=== PATIENT | male | born 1975 | race Caucasian/White ===

== ENCOUNTER → 2016-10-03 | Outpatient (CLI) | payer OTHER ==
--- NOTE | 2016-10-03 09:21 | US ---
EXAMINATION TYPE: US liver DATE OF EXAM: 10/03/2016 8:50 AM COMPARISON: NONE CLINICAL HISTORY: R74.8 Elevated Liver Enzymes. EXAM MEASUREMENTS: Liver Length: 17.3 cm Gallbladder Wall: 0.5 cm CBD: 0.2 cm Right Kidney: 12.9 x 5.5 x 6.2 cm Pancreas: not well seen mostly obscured by bowel gas Liver: Increased attenuation, decreased visualization of vessels suggestive of fatty infiltrate, enl arged Gallbladder: small and contracted, wall somewhat thickened pt NPO Evidence for sonographic Simms's sign: no CBD: wnl Right Kidney:enlarged IMPRESSION: 1. Hepatomegaly with hepatic steatosis.
== END | disposition home or self-care (01) ==
LOC: RADUSWWP 08:30
PROVIDERS: ATTEND Family Medicine
DX: R16.0 Hepatomegaly, not elsewhere classified (principal); K76.0 Fatty (change of) liver, not elsewhere classified
CPT/HCPCS: 76705

== ENCOUNTER 2018-09-10 05:16 | Emergency (ER) | payer MEDICAID, OTHER ==
[2018-09-10] MEDS ORDERED: SODIUM CHLORIDE 0.9% 1,000 ML IV STA (05:42)
[2018-09-10] MEDS ORDERED: ONDANSETRON 4 MG/2 ML VIAL IVP STA (05:42)
[2018-09-10] MEDS ORDERED: KETOROLAC 30 MG/ML 1 ML VIAL IVP STA (05:42)
[2018-09-10 06:00] LABS: Basophils % (A) 0 %; Eosinophils # (A) 0.1 k/uL (0-0.7); Eosinophils % (A) 2 %; HCT 42.6 % (39.0-53.0); HGB 14.2 gm/dL (13.0-17.5); Lymphocytes # (A) 1.1 k/uL (1.0-4.8); Lymphocytes % (A) 18 %; MCH 25.7 pg (25.0-35.0); MCHC 33.4 g/dL (31.0-37.0); MCV 77.1 fL (80.0-100.0); Mean Platelet Volume 6.1; Microcytosis Slight; Monocytes # (A) 0.3 k/uL (0-1.0); Monocytes % (A) 5 %; Neutrophils # (A) 4.3 k/uL (1.3-7.7); Neutrophils % (A) 73 %; Platelet Count 270 k/uL (150-450); RBC 5.53 m/uL (4.30-5.90); RDW 14.9 % (11.5-15.5); WBC 5.8 k/uL (3.8-10.6)
--- NOTE | 2018-09-10 06:07 | ED ---
Abdominal Pain HPI - General Source: patient, family Mode of arrival: wheelchair Limitations: physical limitation <Sheila Luna - Last Filed: 09/10/18 07:41> <Sudheer Hidalgo - Last Filed: 09/10/18 09:05> - General Chief Complaint: Abdominal Pain Stated Complaint: urogenital Time Seen by Provider: 09/10/18 05:34 - History of Present Illness Initial Comments: Jonh is a 42-year-old male presents the emergency department today for evaluation of left-sided flank pain and a sensation that he needs to urinate. Sonny antunez woke from sleep around 3:30 this morning with this pain it's been persistent since that time without any exacerbating or relieving factors. Patient has no history of kidney stones or urinary tract infection is never spirits pain like this in the past. (Sheila Luna) - Related Data Home Medications Medication Instructions Recorded Confirmed Lisinopril-Hctz 20-25 mg 1 tab PO DAILY 09/10/18 09/10/18 [Zestoretic 20-25] Previous Rx's Medication Instructions Recorded Ondansetron [Zofran ODT] 4 mg PO Q8HR #12 tab 09/10/18 Tamsulosin [Flomax] 0.4 mg PO DAILY #7 cap 09/10/18 Allergies Allergy/AdvReac Type Severity Reaction Status Date / Time phenylketonurics Allergy Swelling Uncoded 09/10/18 08:00 Review of Systems ROS Other: All systems not noted in ROS Statement are negative. <Sheila Luna - Last Filed: 09/10/18 07:41> ROS Other: All systems not noted in ROS Statement are negative. <Sudheer Hidalgo - Last Filed: 09/10/18 09:05> ROS Statement: Those systems with pertinent positive or pertinent negative responses have been documented in the HPI. Past Medical History Past Medical History: Hypertension History of Any Multi-Drug Resistant Organisms: None Reported Additional Past Surgical History / Comment(s): hydrocele finger tendon surgery. testicle Past Anesthesia/Blood Transfusion Reactions: No Reported Reaction Past Psychological History: No Psychological Hx Reported Smoking Status: Never smoker Past Alcohol Use History: Rare Past Drug Use History: None Reported - Past Family History Father Family Medical History: Cancer <Sheila Luna - Last Filed: 09/10/18 07:41> General Exam Limitations: physical limitation <Sheila Luna - Last Filed: 09/10/18 07:41> - General Exam Comments Initial Comments: Physical Exam GENERAL: Appears uncomfortable, rolling around cannot find a comfortable position HENT: Normocephalic, Atraumatic. EYES: PERRL, EOMI PULMONARY: Unlabored respirations. No audible rales rhonchi or wheezing was noted. CARDIOVASCULAR: There is a regular rate and rhythm without any murmurs gallops or rubs. ABDOMEN: Soft and nontender with normal bowel sounds. Tenderness to percussion of the left flank SKIN: Skin is clear with no lesions or rashes and otherwise unremarkable. : Deferred NEUROLOGIC: Patient is alert and oriented x3. Moving all extremities spontaneously MUSCULOSKELETAL: Normal extremities with adequate strength and full range of motion. No lower extremity swelling or edema. No calf tenderness. PSYCHIATRIC: Normal psychiatric evaluation. Limitations: no limitations (Sheila Luna) Course Vital Signs 09/10/18 09/10/18 05:18 06:53 Temperature 98.2 F Pulse Rate 101 H 89 Respiratory 18 16 Rate Blood Pressure 162/94 151/94 O2 Sat by Pulse 99 98 Oximetry Medical Decision Making - Lab Data Result diagrams: 09/10/18 05:46 09/10/18 05:46 <Sheila Luna - Last Filed: 09/10/18 07:41> - Lab Data Result diagrams: 09/10/18 05:46 09/10/18 05:46 <Sudheer Hidalgo - Last Filed: 09/10/18 09:05> - Medical Decision Making Patient was seen and evaluated history is obtained from patient history and physical exam are concerning for kidney stone Labs, CT imaging IV fluids and Toradol were ordered Toradol relieved the patient's pain temporarily however he continued to have pain and morphine was ordered CT did reveal a 1 mm UVJ stone Patient care signed out to Dr Hidalgo at 7:30am awaiting patient to provide urinalysis (Sheila Luna) Patient reevaluated by myself, Dr. Hidalgo. Patient resting comfortably in bed, no significant discomfort at this point. Patient and family updated on results and need for follow-up. Patient and family specifically updated on pulmonary nodule and need with follow-up with primary care physician for this. (Sudheer Hidalgo) - Lab Data Lab Results 09/10/18 09/10/18 09/10/18 Range/Units 05:46 05:46 08:22 WBC 5.8 (3.8-10.6) k/uL RBC 5.53 (4.30-5.90) m/uL Hgb 14.2 (13.0-17.5) gm/dL Hct 42.6 (39.0-53.0) % MCV 77.1 L (80.0-100.0) fL MCH 25.7 (25.0-35.0) pg MCHC 33.4 (31.0-37.0) g/dL RDW 14.9 (11.5-15.5) % Plt Count 270 (150-450) k/uL Neutrophils % 73 % Lymphocytes % 18 % Monocytes % 5 % Eosinophils % 2 % Basophils % 0 % Neutrophils # 4.3 (1.3-7.7) k/uL Lymphocytes # 1.1 (1.0-4.8) k/uL Monocytes # 0.3 (0-1.0) k/uL Eosinophils # 0.1 (0-0.7) k/uL Basophils # 0.0 (0-0.2) k/uL Microcytosis Slight Sodium 140 (137-145) mmol/L Potassium 4.2 (3.5-5.1) mmol/L Chloride 106 (98-107) mmol/L Carbon Dioxide 26 (22-30) mmol/L Anion Gap 8 mmol/L BUN 24 H (9-20) mg/dL Creatinine 0.80 (0.66-1.25) mg/dL Est GFR (CKD-EPI)AfAm >90 (>60 ml/min/1.73 sqM) Est GFR (CKD-EPI)NonAf >90 (>60 ml/min/1.73 sqM) Glucose 136 H (74-99) mg/dL Calcium 9.6 (8.4-10.2) mg/dL Total Bilirubin 0.6 (0.2-1.3) mg/dL AST 38 (17-59) U/L ALT 52 (21-72) U/L Alkaline Phosphatase 56 (38-126) U/L Total Protein 7.9 (6.3-8.2) g/dL Albumin 4.6 (3.5-5.0) g/dL Urine Color Yellow Urine Appearance Clear (Clear) Urine pH 6.5 (5.0-8.0) Ur Specific [place] 1.032 (1.001-1.035) Urine Protein 1+ H (Negative) Urine Glucose (UA) Negative (Negative) Urine Ketones Negative (Negative) Urine Blood Negative (Negative) Urine Nitrite Negative (Negative) Urine Bilirubin Negative (Negative) Urine Urobilinogen 2.0 (<2.0) mg/dL Ur Leukocyte Esterase Negative (Negative) Urine Mucus Few H (None) /hpf Disposition <Sheila Luna - Last Filed: 09/10/18 07:41> Is patient prescribed a controlled substance at d/c from ED?: No Time of Disposition: 09:05 <Sudheer Hidalgo - Last Filed: 09/10/18 09:05> Clinical Impression: Ureterolithiasis Disposition: HOME SELF-CARE Condition: Stable Instructions (If sedation given, give patient instructions): Kidney Stones (ED) Additional Instructions: Please follow-up with primary care physician in the next their 2 for recheck. Return for fevers, uncontrolled pain, vomiting, worsening symptoms or other concerns. Please have primary care physician follow-up with pulmonary nodule as well. Prescriptions: Tamsulosin [Flomax] 0.4 mg PO DAILY #7 cap Ondansetron [Zofran ODT] 4 mg PO Q8HR #12 tab Referrals: Adan lPaza MD [Primary Care Provider] - 1-2 days
[2018-09-10 06:17] LABS: ALT 52 U/L (21-72); AST 38 U/L (17-59); Albumin 4.6 g/dL (3.5-5.0); Alkaline Phosphatase 56 U/L (38-126); Anion Gap 8 mmol/L; Blood Urea Nitrogen 24 mg/dL (9-20); Calcium 9.6 mg/dL (8.4-10.2); Carbon Dioxide 26 mmol/L (22-30); Chloride 106 mmol/L (98-107); Glucose 136 mg/dL (74-99); Sodium 140 mmol/L (137-145); Total Bilirubin 0.6 mg/dL (0.2-1.3); Total Protein 7.9 g/dL (6.3-8.2)
[2018-09-10 06:21] LABS: Potassium 4.2 mmol/L (3.5-5.1)
[2018-09-10] MEDS ORDERED: MORPHINE SULFATE 4 MG/ML SYRINGE IVP STA (06:47)
--- NOTE | 2018-09-10 07:24 | CT ---
EXAM: CT Abdomen and Pelvis Without Intravenous Contrast, Renal Stone Protocol CLINICAL HISTORY: ITS.REASON CT Reason: Pain TECHNIQUE: Axial computed tomography images of the abdomen and pelvis without intravenous contrast using renal stone protocol. CTDI is 29.4+0.085+ 0. 085 mGy and DLP is 1853.4 mGy-cm. This CT exam was performed using one or more of the following dose reduction techniques: automated exposure control, adjustment of the mA and/or kV according to patient size, and/or use of iterative reconstruction technique. COMPARISON: No relevant prior studies available. FINDINGS: Lower thorax: 3 mm solid pulmonary nodule in the right middle lobe (series 201 image 11). ABDOMEN: Liver: Grossly Unremarkable. Gallbladder and bile ducts: Grossly Unremarkable. No calcified stones. No ductal dilation. Pancreas: Grossly Unremarkable. No ductal dilation. Spleen: Grossly Unremarkable. No splenomegaly. Adrenals: Grossly Unremarkable. No mass. Right kidney and ureter: Grossly Unremarkable. No calculi. No hydronephrosis. Left kidney and ureter: 1 mm calculus at the left ureterovesicular junction with mild prominence of the left ureter but no hydronephrosis. There is mild perinephric and periureteral fat stranding. Stomach and bowel: Diverticulosis without evidence of diverticulitis. No obstruction. PELVIS: Appendix: No findings to suggest acute appendicitis. Bladder: Grossly Unremarkable. No stones. Reproductive: Unremarkable as visualized. ABDOMEN and PELVIS: Intraperitoneal space: Unremarkable. No free air. No significant fluid collection. Bones/joints: No acute fracture. Soft tissues: Unremarkable. Lymph nodes: Unremarkable. No enlarged lymph nodes. IMPRESSION: 1. 3 mm solid pulmonary nodule in the right middle lobe (series 201 image 11). ACR White Paper guidelines (Barbihosonido, et al. Radiology 2017; 284(1):228-43) suggest the following. For low-risk patients, no follow- up is necessary. For high-risk patients (smoking history or other known risk factors) an optional chest CT at 12 months could be performed. 2. 1 mm calculus at the left ureterovesicular junction with mild prominence of the left ureter but no hydronephrosis. There is mild perinephric and periureteral fat stranding. 3. Diverticulosis without evidence of diverticulitis.
[2018-09-10] MEDS ORDERED: SODIUM CHLORIDE 0.9% 1,000 ML IV ONE (07:28)
[2018-09-10] MEDS ORDERED: ACET/COD 300 MG/30 MG STARTER PACK 6 TAB BTL PO STA (07:39)
[2018-09-10 08:49] LABS: Appearance,Urine Clear (Clear); Bilirubin,Urine Negative (Negative); Blood,Urine Negative (Negative); Color,Urine Yellow; Glucose,Urine (UA) Negative (Negative); Ketones,Urine Negative (Negative); Leukocyte Esterase,Urine Negative (Negative); Mucus,Urine Few /hpf; Nitrite,Urine Negative (Negative); PH, Urine 6.5 (5.0-8.0); Protein,Urine 1+ (Negative); Specific Gravity,Urine 1.032 (1.001-1.035)
[2018-09-10 09:14] VITALS: BP 158/89; PULSE 84; RESP 19; TEMP 97.9
== END 2018-09-10 09:15 | disposition home or self-care (01) ==
LOC: EC 05:16
DX: N20.1 Calculus of ureter (principal); I10 Essential (primary) hypertension; Z79.899 Other long term (current) drug therapy; Z88.8 Allergy status to other drugs, medicaments and biological substances
CPT/HCPCS: 36415; 74150; 80053; 81001; 85025; 96361; 96374; 96375; 99284

== ENCOUNTER 2018-09-13 06:32 | Emergency (ER) | payer MEDICAID ==
[2018-09-13] MEDS ORDERED: KETOROLAC 30 MG/ML 1 ML VIAL IVP STA (07:06)
[2018-09-13] MEDS ORDERED: TAMSULOSIN 0.4 MG CAP.ER.24H PO STA (07:07)
[2018-09-13] MEDS ORDERED: ONDANSETRON 4 MG/2 ML VIAL IVP STA (07:07)
[2018-09-13] MEDS ORDERED: BISACODYL 5 MG TABLET.DR PO STA (07:10)
--- NOTE | 2018-09-13 07:11 | ED ---
General Adult HPI - General Chief complaint: Recheck/Abnormal Lab/Rx Stated complaint: kidney stone Time Seen by Provider: 09/13/18 07:00 Source: patient, RN notes reviewed Mode of arrival: ambulatory Limitations: no limitations - History of Present Illness Initial comments: 42-year-old male presents emergency Department chief complaint of worsening pain from kidney stone. Patient states he is here for days ago diagnosed a 1 mm kidney stone. Patient states that has not relieved. Patient states that he was taken, according states it wasn't helping the pain. He switch to Motrin. Patient states he now is constipated also. He has no decreased urine output. Patient states pains just not improved by anything at this point. Patient's had some nausea no vomiting no diarrhea no chest pain or shortness breath. - Related Data Home Medications Medication Instructions Recorded Confirmed Lisinopril-Hctz 20-25 mg 1 tab PO DAILY 09/10/18 09/13/18 [Zestoretic 20-25] Previous Rx's Medication Instructions Recorded Ondansetron [Zofran ODT] 4 mg PO Q8HR #12 tab 09/10/18 Tamsulosin [Flomax] 0.4 mg PO DAILY #7 cap 09/10/18 Hydrocodone/Acetaminophen [[place] 1 tab PO Q6HR PRN #12 tab 09/13/18 5-325] Ketorolac [Toradol] 10 mg PO Q8HR #15 tab 09/13/18 Allergies Allergy/AdvReac Type Severity Reaction Status Date / Time phenylketonurics Allergy Swelling Uncoded 09/13/18 07:11 Review of Systems ROS Statement: Those systems with pertinent positive or pertinent negative responses have been documented in the HPI. ROS Other: All systems not noted in ROS Statement are negative. Past Medical History Past Medical History: Hypertension Additional Past Medical History / Comment(s): kidney stone History of Any Multi-Drug Resistant Organisms: None Reported Additional Past Surgical History / Comment(s): hydrocele finger tendon surgery. testicle Past Anesthesia/Blood Transfusion Reactions: No Reported Reaction Past Psychological History: No Psychological Hx Reported Smoking Status: Never smoker Past Alcohol Use History: Rare Past Drug Use History: None Reported - Past Family History Father Family Medical History: Cancer General Exam Limitations: no limitations General appearance: alert, in no apparent distress Head exam: Present: atraumatic, normocephalic, normal inspection Eye exam: Present: normal appearance, PERRL, EOMI. Absent: scleral icterus, conjunctival injection, periorbital swelling Respiratory exam: Present: normal lung sounds bilaterally. Absent: respiratory distress, wheezes, rales, rhonchi, stridor Cardiovascular Exam: Present: regular rate, normal rhythm, normal heart sounds. Absent: systolic murmur, diastolic murmur, rubs, gallop, clicks GI/Abdominal exam: Present: soft, tenderness (Mild left-sided), normal bowel sounds. Absent: distended, guarding, rebound, rigid Neurological exam: Present: alert, oriented X3, CN II-XII intact Skin exam: Present: warm, dry, intact, normal color. Absent: rash Course Vital Signs 09/13/18 06:39 Temperature 98.2 F Pulse Rate 86 Respiratory 18 Rate Blood Pressure 144/83 O2 Sat by Pulse 97 Oximetry - Reevaluation(s) Reevaluation #1: 09/13/18 07:46 Patient reevaluated states his pain has resolved, resting comfortably updated and results. Medical Decision Making - Medical Decision Making 42-year-old presented for pain control from kidney stone. Patient was seen here a few days prior diagnosed with a kidney some the left UVJ. Patient's pain has been persistent on alleviated with pain medication upon discharge. Patient lab work was repeated no acute findings. Patient's improved after Toradol IV fluids. Patient will be discharged with close follow-up return parameters were discussed. - Lab Data Result diagrams: 09/13/18 07:13 09/13/18 07:13 Lab Results 09/13/18 09/13/18 09/13/18 Range/Units 07:13 07:13 07:17 WBC 9.1 (3.8-10.6) k/uL RBC 5.04 (4.30-5.90) m/uL Hgb 12.9 L (13.0-17.5) gm/dL Hct 38.5 L (39.0-53.0) % MCV 76.5 L (80.0-100.0) fL MCH 25.6 (25.0-35.0) pg MCHC 33.5 (31.0-37.0) g/dL RDW 14.8 (11.5-15.5) % Plt Count 259 (150-450) k/uL Neutrophils % 80 % Lymphocytes % 11 % Monocytes % 6 % Eosinophils % 2 % Basophils % 0 % Neutrophils # 7.2 (1.3-7.7) k/uL Lymphocytes # 1.0 (1.0-4.8) k/uL Monocytes # 0.6 (0-1.0) k/uL Eosinophils # 0.2 (0-0.7) k/uL Basophils # 0.0 (0-0.2) k/uL Microcytosis Slight Sodium 138 (137-145) mmol/L Potassium 4.1 (3.5-5.1) mmol/L Chloride 104 (98-107) mmol/L Carbon Dioxide 26 (22-30) mmol/L Anion Gap 8 mmol/L BUN 21 H (9-20) mg/dL Creatinine 1.15 (0.66-1.25) mg/dL Est GFR (CKD-EPI)AfAm 90 (>60 ml/min/1.73 sqM) Est GFR (CKD-EPI)NonAf 78 (>60 ml/min/1.73 sqM) Glucose 101 H (74-99) mg/dL Calcium 9.1 (8.4-10.2) mg/dL Urine Color Yellow Urine Appearance Clear (Clear) Urine pH 5.5 (5.0-8.0) Ur Specific [place] 1.020 (1.001-1.035) Urine Protein Trace H (Negative) Urine Glucose (UA) Negative (Negative) Urine Ketones Negative (Negative) Urine Blood Negative (Negative) Urine Nitrite Negative (Negative) Urine Bilirubin Negative (Negative) Urine Urobilinogen <2.0 (<2.0) mg/dL Ur Leukocyte Esterase Negative (Negative) Disposition Clinical Impression: Kidney stone Disposition: HOME SELF-CARE Condition: Stable Instructions (If sedation given, give patient instructions): Kidney Stones (ED) Additional Instructions: Please return to the Emergency Department if symptoms worsen or any other concerns. Make sure you are taking stool softener or laxative with pain medications. Prescriptions: Hydrocodone/Acetaminophen [[place] 5-325] 1 tab PO Q6HR PRN #12 tab PRN Reason: Pain Ketorolac [Toradol] 10 mg PO Q8HR #15 tab Is patient prescribed a controlled substance at d/c from ED?: Yes When asked, does pt state using other controlled substances?: No If prescribed controlled substance>3 days was MAPS reviewed?: Prescribed <3 Days If opioid is for acute pain is fill amount 7 days or less?: Yes If Rx opioid, was Start Talking consent form obtained?: Yes Referrals: Adna Plaza MD [Primary Care Provider] - 1-2 days Parish Toney MD [STAFF PHYSICIAN] - 1-2 days Time of Disposition: 07:48
[2018-09-13 07:23] LABS: Basophils % (A) 0 %; Eosinophils # (A) 0.2 k/uL (0-0.7); Eosinophils % (A) 2 %; HCT 38.5 % (39.0-53.0); HGB 12.9 gm/dL (13.0-17.5); Lymphocytes % (A) 11 %; MCH 25.6 pg (25.0-35.0); MCHC 33.5 g/dL (31.0-37.0); MCV 76.5 fL (80.0-100.0); Mean Platelet Volume 6.7; Microcytosis Slight; Monocytes # (A) 0.6 k/uL (0-1.0); Monocytes % (A) 6 %; Neutrophils # (A) 7.2 k/uL (1.3-7.7); Neutrophils % (A) 80 %; Platelet Count 259 k/uL (150-450); RBC 5.04 m/uL (4.30-5.90); RDW 14.8 % (11.5-15.5); WBC 9.1 k/uL (3.8-10.6)
[2018-09-13 07:23] LABS: Appearance,Urine Clear (Clear); Bilirubin,Urine Negative (Negative); Blood,Urine Negative (Negative); Color,Urine Yellow; Glucose,Urine (UA) Negative (Negative); Ketones,Urine Negative (Negative); Leukocyte Esterase,Urine Negative (Negative); Nitrite,Urine Negative (Negative); PH, Urine 5.5 (5.0-8.0); Protein,Urine Trace (Negative); Urobilinogen,Urine <2.0 mg/dL (<2.0)
[2018-09-13 07:33] LABS: Calcium 9.1 mg/dL (8.4-10.2); Potassium 4.1 mmol/L (3.5-5.1)
[2018-09-13 09:04] VITALS: BP 146/92; PULSE 77; RESP 16; TEMP 98.7
== END 2018-09-13 07:58 | disposition home or self-care (01) ==
LOC: EC 06:32
DX: N20.0 Calculus of kidney (principal); K59.00 Constipation, unspecified; I10 Essential (primary) hypertension; Z91.048 Other nonmedicinal substance allergy status; Z79.899 Other long term (current) drug therapy; Z98.890 Other specified postprocedural states
CPT/HCPCS: 36415; 80048; 85025; 81003; 99283; 96374; 96375; J2405; J1885

== ENCOUNTER 2020-06-19 11:32 | Emergency (ER) | payer MEDICAID ==
[2020-06-19 11:55] VITALS: TEMP 99
--- NOTE | 2020-06-19 11:59 | ED ---
General Adult HPI - General Chief complaint: Chest Pain Stated complaint: High BP Time Seen by Provider: 06/19/20 11:35 Source: patient, RN notes reviewed, old records reviewed Mode of arrival: ambulatory Limitations: no limitations - History of Present Illness Initial comments: This is a 44-year-old male presents emergency Department with a past medical history significant for high blood pressure. Patient states for the last week he has been feeling his heart pounding in his chest he's had no chest pain discomfort or achiness. Patient denies any radiation of the pain patient denies any difficulty breathing or shortness of breath. Patient denies any nausea vomiting per patient denies abdominal pain. Patient states he just has this sensation that he can feel his heart beat where he normally cannot. Patient states been ongoing for a week he states it has not stopped at any point in time. Patient states is continuous and currently ongoing. Patient denies any recent fever chills or cough. Patient denies any swelling to the legs or any calf tenderness. - Related Data Home Medications Medication Instructions Recorded Confirmed Lisinopril-Hctz 20-25 mg 1 tab PO DAILY 09/10/18 06/19/20 [Zestoretic 20-25] Garcinia Cambogia 1 cap PO DAILY 06/19/20 06/19/20 Ubidecarenone [Co Q-10] 300 mg PO DAILY 06/19/20 06/19/20 Allergies Allergy/AdvReac Type Severity Reaction Status Date / Time phenylketonurics Allergy Swelling Uncoded 06/19/20 13:28 Review of Systems ROS Statement: Those systems with pertinent positive or pertinent negative responses have been documented in the HPI. ROS Other: All systems not noted in ROS Statement are negative. Past Medical History Past Medical History: Hypertension Additional Past Medical History / Comment(s): kidney stone, rotator cuff torn History of Any Multi-Drug Resistant Organisms: None Reported Additional Past Surgical History / Comment(s): hydrocele finger tendon surgery. testicle Past Anesthesia/Blood Transfusion Reactions: No Reported Reaction Past Psychological History: No Psychological Hx Reported Smoking Status: Never smoker Past Alcohol Use History: Rare Past Drug Use History: None Reported - Past Family History Father Family Medical History: Cancer General Exam - General Exam Comments Initial Comments: GENERAL: Patient is well-developed and well-nourished. Patient is nontoxic and well- hydrated and is in no acute distress. ENT: Neck is soft and supple. No significant lymphadenopathy is noted. Oropharynx is clear. Moist mucous membranes. Neck has full range of motion without eliciting any pain. There is no thyroid enlargement and no masses were felt. EYES: The sclera were anicteric and conjunctiva were pink and moist. Extraocular movements were intact and pupils were equal round and reactive to light. Eyelids were unremarkable. PULMONARY: Unlabored respirations. Good breath sounds bilaterally. No audible rales rhonchi or wheezing was noted. CARDIOVASCULAR: There is a regular rate and rhythm without any murmurs gallops or rubs. Femoral pulses are equal bilaterally ABDOMEN: Soft and nontender with normal bowel sounds. Patient is morbidly obese SKIN: Skin is clear with no lesions or rashes and otherwise unremarkable. NEUROLOGIC: Patient is alert and oriented x3. Cranial nerves II through XII are grossly intact. Motor and sensory are also intact. Normal speech, volume and content. Symmetrical smile. MUSCULOSKELETAL: Normal extremities with adequate strength and full range of motion. No lower extremity swelling or edema. No calf tenderness. LYMPHATICS: No significant lymphadenopathy is noted PSYCHIATRIC: Normal psychiatric evaluation. Limitations: no limitations Course Vital Signs 06/19/20 06/19/20 06/19/20 11:37 11:55 12:00 Temperature 99.1 F 99.0 F Pulse Rate 103 H 100 Respiratory 18 14 Rate Blood Pressure 156/84 156/87 O2 Sat by Pulse 98 97 Oximetry 06/19/20 06/19/20 06/19/20 12:30 12:50 13:00 Temperature Pulse Rate 94 96 107 H Respiratory 15 15 15 Rate Blood Pressure 156/87 126/67 126/67 O2 Sat by Pulse 96 96 95 Oximetry 06/19/20 06/19/20 13:30 14:00 Temperature Pulse Rate 98 87 Respiratory 16 14 Rate Blood Pressure 122/71 119/61 O2 Sat by Pulse 96 95 Oximetry Medical Decision Making - Medical Decision Making EKG shows sinus tachycardia at 109 bpm VA interval 160 QRS is 88 QT interval 3:3 0 QTC is 444. Patient's EKG shows no ST segment elevation or depression. Chest x-ray shows no acute abnormality. One pack and reevaluate the patient he had no chest pain no difficulty breathing. Patient states he felt as though he could still hear his heartbeat. - Lab Data Result diagrams: 06/19/20 12:03 06/19/20 12:03 Lab Results 06/19/20 06/19/20 06/19/20 Range/Units 12:03 12:03 12:03 WBC 7.3 (3.8-10.6) k/uL RBC 5.96 H (4.30-5.90) m/uL Hgb 15.7 (13.0-17.5) gm/dL Hct 45.5 (39.0-53.0) % MCV 76.4 L (80.0-100.0) fL MCH 26.4 (25.0-35.0) pg MCHC 34.5 (31.0-37.0) g/dL RDW 14.5 (11.5-15.5) % Plt Count 284 (150-450) k/uL MPV 6.2 Neutrophils % 62 % Lymphocytes % 26 % Monocytes % 7 % Eosinophils % 2 % Basophils % 1 % Neutrophils # 4.5 (1.3-7.7) k/uL Lymphocytes # 1.9 (1.0-4.8) k/uL Monocytes # 0.5 (0-1.0) k/uL Eosinophils # 0.1 (0-0.7) k/uL Basophils # 0.1 (0-0.2) k/uL Microcytosis Slight PT 10.3 (9.0-12.0) sec INR 1.0 (<1.2) APTT 22.6 (22.0-30.0) sec D-Dimer (<0.60) mg/L FEU Sodium 139 (137-145) mmol/L Potassium 3.9 (3.5-5.1) mmol/L Chloride 103 (98-107) mmol/L Carbon Dioxide 26 (22-30) mmol/L Anion Gap 10 mmol/L BUN 18 (9-20) mg/dL Creatinine 0.75 (0.66-1.25) mg/dL Est GFR (CKD-EPI)AfAm >90 (>60 ml/min/1.73 sqM) Est GFR (CKD-EPI)NonAf >90 (>60 ml/min/1.73 sqM) Glucose 124 H (74-99) mg/dL Calcium 9.5 (8.4-10.2) mg/dL Magnesium 1.8 (1.6-2.3) mg/dL Total Bilirubin 0.5 (0.2-1.3) mg/dL AST 38 (17-59) U/L ALT 58 H (4-49) U/L Alkaline Phosphatase 59 (38-126) U/L Troponin I (0.000-0.034) ng/mL Total Protein 7.8 (6.3-8.2) g/dL Albumin 4.2 (3.5-5.0) g/dL TSH 0.836 (0.465-4.680) mIU/L Urine Opiates Screen (NotDetected) Ur Oxycodone Screen (NotDetected) Urine Methadone Screen (NotDetected) Ur Propoxyphene Screen (NotDetected) Ur Barbiturates Screen (NotDetected) U Tricyclic Antidepress (NotDetected) Ur Phencyclidine Scrn (NotDetected) Ur Amphetamines Screen (NotDetected) U Methamphetamines Scrn (NotDetected) U Benzodiazepines Scrn (NotDetected) Urine Cocaine Screen (NotDetected) U Marijuana (THC) Screen (NotDetected) 06/19/20 06/19/20 06/19/20 Range/Units 12:03 12:03 13:03 WBC (3.8-10.6) k/uL RBC (4.30-5.90) m/uL Hgb (13.0-17.5) gm/dL Hct (39.0-53.0) % MCV (80.0-100.0) fL MCH (25.0-35.0) pg MCHC (31.0-37.0) g/dL RDW (11.5-15.5) % Plt Count (150-450) k/uL MPV Neutrophils % % Lymphocytes % % Monocytes % % Eosinophils % % Basophils % % Neutrophils # (1.3-7.7) k/uL Lymphocytes # (1.0-4.8) k/uL Monocytes # (0-1.0) k/uL Eosinophils # (0-0.7) k/uL Basophils # (0-0.2) k/uL Microcytosis PT (9.0-12.0) sec INR (<1.2) APTT (22.0-30.0) sec D-Dimer 0.30 (<0.60) mg/L FEU Sodium (137-145) mmol/L Potassium (3.5-5.1) mmol/L Chloride (98-107) mmol/L Carbon Dioxide (22-30) mmol/L Anion Gap mmol/L BUN (9-20) mg/dL Creatinine (0.66-1.25) mg/dL Est GFR (CKD-EPI)AfAm (>60 ml/min/1.73 sqM) Est GFR (CKD-EPI)NonAf (>60 ml/min/1.73 sqM) Glucose (74-99) mg/dL Calcium (8.4-10.2) mg/dL Magnesium (1.6-2.3) mg/dL Total Bilirubin (0.2-1.3) mg/dL AST (17-59) U/L ALT (4-49) U/L Alkaline Phosphatase (38-126) U/L Troponin I <0.012 (0.000-0.034) ng/mL Total Protein (6.3-8.2) g/dL Albumin (3.5-5.0) g/dL TSH (0.465-4.680) mIU/L Urine Opiates Screen Detected H (NotDetected) Ur Oxycodone Screen Not Detected (NotDetected) Urine Methadone Screen Not Detected (NotDetected) Ur Propoxyphene Screen Not Detected (NotDetected) Ur Barbiturates Screen Not Detected (NotDetected) U Tricyclic Antidepress Not Detected (NotDetected) Ur Phencyclidine Scrn Not Detected (NotDetected) Ur Amphetamines Screen Not Detected (NotDetected) U Methamphetamines Scrn Not Detected (NotDetected) U Benzodiazepines Scrn Not Detected (NotDetected) Urine Cocaine Screen Not Detected (NotDetected) U Marijuana (THC) Screen Not Detected (NotDetected) Disposition Clinical Impression: Palpitations Disposition: HOME SELF-CARE Condition: Good Instructions (If sedation given, give patient instructions): Heart Palpitations (ED) Is patient prescribed a controlled substance at d/c from ED?: No Referrals: Adan Plaza MD [Primary Care Provider] - 1-2 days Time of Disposition: 14:22
[2020-06-19 12:14] LABS: Basophils # (A) 0.1 k/uL (0-0.2); Basophils % (A) 1 %; Eosinophils # (A) 0.1 k/uL (0-0.7); Eosinophils % (A) 2 %; HCT 45.5 % (39.0-53.0); HGB 15.7 gm/dL (13.0-17.5); Lymphocytes # (A) 1.9 k/uL (1.0-4.8); Lymphocytes % (A) 26 %; MCH 26.4 pg (25.0-35.0); MCHC 34.5 g/dL (31.0-37.0); MCV 76.4 fL (80.0-100.0); Mean Platelet Volume 6.2; Microcytosis Slight; Monocytes # (A) 0.5 k/uL (0-1.0); Monocytes % (A) 7 %; Neutrophils # (A) 4.5 k/uL (1.3-7.7); Neutrophils % (A) 62 %; Platelet Count 284 k/uL (150-450); RBC 5.96 m/uL (4.30-5.90); RDW 14.5 % (11.5-15.5); WBC 7.3 k/uL (3.8-10.6)
[2020-06-19 12:21] LABS: ALT 58 U/L (4-49); AST 38 U/L (17-59); African American GFR (CKD) >90 (>60 ml/min/1.73 sqM); Albumin 4.2 g/dL (3.5-5.0); Alkaline Phosphatase 59 U/L (38-126); Anion Gap 10 mmol/L; Blood Urea Nitrogen 18 mg/dL (9-20); Calcium 9.5 mg/dL (8.4-10.2); Carbon Dioxide 26 mmol/L (22-30); Chloride 103 mmol/L (98-107); Glucose 124 mg/dL (74-99); Magnesium 1.8 mg/dL (1.6-2.3); Non-African American GFR(CKD) >90 (>60 ml/min/1.73 sqM); Potassium 3.9 mmol/L (3.5-5.1); Sodium 139 mmol/L (137-145); Total Bilirubin 0.5 mg/dL (0.2-1.3); Total Protein 7.8 g/dL (6.3-8.2)
[2020-06-19 12:30] LABS: Partial Thromboplastin Time 22.6 sec (22.0-30.0); Prothrombin Time 10.3 sec (9.0-12.0)
--- NOTE | 2020-06-19 12:46 | XR ---
EXAMINATION TYPE: XR chest 2V DATE OF EXAM: 06/19/2020 COMPARISON: NONE HISTORY: Chest pain TECHNIQUE: Frontal and lateral views of the chest are obtained. FINDINGS: There is no focal air space opacity. No evidence for pneumothorax. No pleural effusion. The cardiac silhouette size is within normal limits. The osseous structures are grossly intact. IMPRESSION: 1. No acute cardiopulmonary process.
[2020-06-19 13:31] LABS: Amphetamine Screen,Urine Not Detected (NotDetected); Benzodiazepines Screen,Urine Not Detected (NotDetected); Cocaine Screen,Urine Not Detected (NotDetected); Methadone Screen, Urine Not Detected (NotDetected); Opiate Screen,Urine Detected (NotDetected); Phencyclidine Screen,Urine Not Detected (NotDetected); Tricyclic Antidepressant,Urine Not Detected (NotDetected); Urn Cannabinoid Scrn Not Detected (NotDetected)
[2020-06-19 13:32] LABS: Barbiturate Screen,Urine Not Detected (NotDetected); Oxycodone Screen, Urine Not Detected (NotDetected)
[2020-06-19 14:08] VITALS: BP 119/61; PULSE 87; RESP 14
== END 2020-06-19 14:27 | disposition home or self-care (01) ==
LOC: EC 11:32
DX: R00.2 Palpitations (principal); I10 Essential (primary) hypertension; E66.01 Morbid (severe) obesity due to excess calories; Z79.899 Other long term (current) drug therapy; Z88.8 Allergy status to other drugs, medicaments and biological substances; Z68.43 Body mass index [BMI] 50.0-59.9, adult
CPT/HCPCS: 36415; 71046; 80053; 80306; 83735; 84443; 84484; 85025; 85379; 85610; 85730; 93005; 99285

== ENCOUNTER 2023-08-18 09:10 | Day surgery (SDC) | payer MEDICAID ==
[2023-08-14 14:18] VITALS: BMI 39.0
[~2023-08-18 09:10] MED LIST: LACTATED RINGERS 1,000 ML IV SCH; LIDOCAINE 1% (10MG/ML) FOR IV START INTRADERMA PRN
[2023-08-18] MEDS: LACTATED RINGERS 1,000 ML IV ONE (09:40)
[2023-08-18 10:00] VITALS: PULSE 90; TEMP 97.8
[2023-08-18] MEDS ORDERED: PROPOFOL 10 MG/ML 20 ML VIAL IV ONE (10:30)
[2023-08-18] MEDS ORDERED: LIDOCAINE 1% INJ 10MG/ML (20 ML MDV) ONE (10:30)
--- NOTE | 2023-08-18 10:43 | P.PCN ---
Date of Procedure: 08/18/23 Procedure(s) Performed: BRIEF HISTORY: Patient is a 47-year-old pleasant white male scheduled for an elective colonoscopy as a part of screening for colon cancer. His father was dilated with colon cancer at age 70. PROCEDURE PERFORMED: Colonoscopy with cold biopsy. PREOPERATIVE DIAGNOSIS: Screening for colon cancer and family history of colon cancer. IV sedation per Anesthesia. PROCEDURE: After informed consent was obtained, the patient, was brought into the endoscopy unit. IV sedation was administered by Anesthesia under continuous monitoring. Digital rectal examination was normal. Initially the Olympus CF-160 flexible video colonoscope was then inserted in the rectum, gradually advanced i nto the cecum without any difficulty. Careful examination was performed as the scope was gradually being withdrawn. Ileocecal valve and the appendiceal orifice were visualized and appeared normal. Prep was excellent. Mucosa of the cecum, ascending colon, transverse colon, descending colon, sigmoid colon, and rectum appeared normal. Retroflexion was performed in the rectum and no lesions were seen. The patient tolerated the procedure well. IMPRESSION: 4-5 mm ascending colon polyp status post cold biopsy Rest of the colon appeared normal RECOMMENDATIONS: Findings of this examination were discussed with the patient as well as his family. He was advised to follow with the biopsy results and have a repeat have a repeat colonoscopy in 5 years because of family history of colon cancer.
[2023-08-18 11:14] VITALS: BP 117/76; RESP 20
== END 2023-08-18 11:39 | disposition home or self-care (01) ==
LOC: ORWHC2ENDO 09:10
PROVIDERS: ATTEND Internal Medicine Gastroenterology
DX: Z12.11 Encounter for screening for malignant neoplasm of colon (principal); K63.5 Polyp of colon; Z80.0 Family history of malignant neoplasm of digestive organs; I10 Essential (primary) hypertension; G47.33 Obstructive sleep apnea (adult) (pediatric); Z79.899 Other long term (current) drug therapy; Z88.9 Allergy status to unspecified drugs, medicaments and biological substances
CPT/HCPCS: 88305; 45380; J2001; J2704

== ENCOUNTER 2024-09-13 06:15 | Emergency (ER) | payer MEDICAID ==
[2024-09-13 06:19] VITALS: TEMP 97.5
[2024-09-13] MEDS: ONDANSETRON 4 MG/2 ML VIAL IVP STA (06:47)
[2024-09-13] MEDS: KETOROLAC 15 MG/ML 1 ML VIAL IVP STA ×2 (06:47→08:46)
--- NOTE | 2024-09-13 06:47 | ED ---
Abdominal Pain HPI - General Chief Complaint: Abdominal Pain Stated Complaint: Abdominal Pain, Constipation Time Seen by Provider: 09/13/24 06:21 Source: patient, RN notes reviewed Mode of arrival: wheelchair Limitations: no limitations - History of Present Illness Initial Comments: 48-year-old male presents emergency department with chief complaint of abdominal pain. Patient states started this morning when he woke up. Patient states that it makes it feel better or feel worse. Patient does have a history of kidney stones but this feels much different. Patient has no dysuria no hematuria patient states he did pass some gas and small bowel movement this morning he denies any prior abdominal surgeries no chest pain no shortness of breath. - Related Data Home Medications Medication Instructions Recorded Confirmed Lisinopril-Hctz 20-25 mg 1 tab PO DAILY 09/10/18 08/18/23 [Zestoretic 20-25] Garcinia Cambogia 1 cap PO DAILY 06/19/20 08/18/23 Ubidecarenone [Co Q-10] 300 mg PO DAILY 06/19/20 08/18/23 Previous Rx's Medication Instructions Recorded Docusate [Colace] 100 mg PO DAILY PRN #14 capsule 09/13/24 HYDROcodone/APAP 5-325MG [[place] 5] 1 each PO Q6HR PRN #12 tab 09/13/24 Ketorolac [Toradol] 10 mg PO Q8HR #15 tab 09/13/24 Ondansetron Odt [Zofran Odt] 4 mg PO Q8HR PRN #10 tab 09/13/24 Tamsulosin [Flomax] 0.4 mg PO DAILY #7 cap 09/13/24 Allergies Allergy/AdvReac Type Severity Reaction Status Date / Time phenylketonurics Allergy Swelling Uncoded 09/13/24 06:17 Review of Systems ROS Statement: Those systems with pertinent positive or pertinent negative responses have been documented in the HPI. ROS Other: All systems not noted in ROS Statement are negative. Past Medical History Past Medical History: Hypertension, Sleep Apnea/CPAP/BIPAP Additional Past Medical History / Comment(s): kidney stone, rotator cuff torn, cpap History of Any Multi-Drug Resistant Organisms: None Reported Additional Past Surgical History / Comment(s): hydrocele finger tendon surgery. testicle Past Anesthesia/Blood Transfusion Reactions: No Reported Reaction Additional Past Anesthesia/Blood Transfusion Reaction / Comment(s): no blood transfusion Past Psychological History: No Psychological Hx Reported Smoking Status: Never smoker Past Alcohol Use History: None Reported Past Drug Use History: None Reported - Past Family History Father Family Medical History: Cancer Additional Family Medical History / Comment(s): colon Mother Family Medical History: Cancer Additional Family Medical History / Comment(s): kidney General Exam Limitations: no limitations General appearance: alert, in no apparent distress Head exam: Present: atraumatic, normocephalic, normal inspection Eye exam: Present: normal appearance, PERRL, EOMI. Absent: scleral icterus, conjunctival injection, periorbital swelling ENT exam: Present: normal exam, mucous membranes moist Neck exam: Present: normal inspection, full ROM. Absent: tenderness, meningismus, lymphadenopathy Respiratory exam: Present: normal lung sounds bilaterally. Absent: respiratory distress, wheezes, rales, rhonchi, stridor Cardiovascular Exam: Present: regular rate, normal rhythm, normal heart sounds. Absent: systolic murmur, diastolic murmur, rubs, gallop, clicks GI/Abdominal exam: Present: soft, tenderness, normal bowel sounds. Absent: distended, guarding, rebound, rigid Back exam: Absent: CVA tenderness (R), CVA tenderness (L) Course Vital Signs 09/13/24 09/13/24 06:17 08:51 Temperature 97.5 F L Pulse Rate 69 65 Respiratory 20 22 Rate Blood Pressure 168/84 119/75 O2 Sat by Pulse 100 97 Oximetry Medical Decision Making - Medical Decision Making Was pt. sent in by a medical professional or institution (, PA, TECHNICAL HEALTHCARE CONSULTANT, urgent care, hospital, or long term...) When possible be specific @ -[No] Did you speak to anyone other than the patient for history (EMS, parent, family, police, friend...)? What history was obtained from this source @ -[No] Did you review nursing and triage notes (agree or disagree)? Why? @ -[I reviewed and agree with nursing and triage notes] Were old charts reviewed (outside hosp., previous admission, EMS record, old EKG, old radiological studies, urgent care reports/EKG's, long term records)? Report findings @ -[No old charts were reviewed] Differential Diagnosis (chest pain, altered mental status, abdominal pain women, abdominal pain men, vaginal bleeding, weakness, fever, dyspnea, syncope, headache, dizziness, GI bleed, back pain, seizure, CVA, palpatations, mental health, musculoskeletal)? @ -Differential Abdominal Pain Men: Appendicitis, cholecystitis, diverticulosis, ischemic bowel, pancreatitis, hepatitis, UTI, gastroenteritis, AAA, incarcerated hernia, bowel obstruction, constipation, inflammatory bowel, hepatitis, peptic ulcer disease, splenic infarction, perforated viscus, testicular torsion, this is not meant to be an all-inclusive list EKG interpreted by me (3pts min.). @ -As above X-rays interpreted by me (1pt min.). @ -[None done] CT interpreted by me (1pt min.). @ -CT of the abdomen pelvis showing evidence of a 3 mm UVJ stone U/S interpreted by me (1pt. min.). @ -[None done] What testing was considered but not performed or refused? (CT, X-rays, U/S, labs)? Why? @ -[None] What meds were considered but not given or refused? Why? @ -[None] Did you discuss the management of the patient with other professionals (professionals i.e. , PA, TECHNICAL HEALTHCARE CONSULTANT, lab, RT, psych nurse, social media developer, siding installer, teacher, chief communications officer, case packer)? Give summary @ -[No] Was smoking cessation discussed for >3mins.? @ -[No] Was critical care preformed (if so, how long)? @ -[No] Were there social determinants of health that impacted care today? How? (Homel essness, low income, unemployed, alcoholism, drug addiction, transportation, low edu. Level, literacy, decrease access to med. care, m[facility], rehab)? @ -[No] Was there de-escalation of care discussed even if they declined (Discuss DNR or withdrawal of care, Hospice)? DNR status @ -[No] What co-morbidities impacted this encounter? (DM, HTN, Smoking, COPD, CAD, Cancer, CVA, ARF, Chemo, Hep., AIDS, mental health diagnosis, sleep apnea, morbid obesity)? @ -[None] Was patient admitted / discharged? Hospital course, mention meds given and route, prescriptions, significant lab abnormalities, going to OR and other pertinent info. @ -Discharge patient feels greatly improved patient has evidence of ureteral calculus patient is afebrile he has no other associated symptoms. Patient discharged in stable condition return for as discussed. Undiagnosed new problem with uncertain prognosis? @ -[No] Drug Therapy requiring intensive monitoring for toxicity (Heparin, Nitro, Insulin, Cardizem)? @ -[No] Were any procedures done? @ -[No] Diagnosis/symptom? @Ureteral calculus Acute, or Chronic, or Acute on Chronic? @ -Acute Uncomplicated (without systemic symptoms) or Complicated (systemic symptoms)? @ -Uncomplicated Side effects of treatment? @ -[No] Exacerbation, Progression, or Severe Exacerbation? @ -[No] Poses a threat to life or bodily function? How? (Chest pain, [place], [place], pneumonia, PE, COPD, DKA, ARF, appy, cholecystitis, CVA, Diverticulitis, Homicidal, Suicidal, threat to staff... and all critical care pts) @ -[No] - Lab Data Result diagrams: 09/13/24 06:50 09/13/24 06:50 Lab Results 09/13/24 09/13/24 Range/Units 06:50 06:50 WBC 8.26 (4.50-10.00) 10*3/uL RBC 5.28 (4.40-5.60) 10*6/uL Hgb 15.1 (13.0-17.0) g/dL Hct 42.8 (39.6-50.0) % MCV 81.1 (80.0-97.0) fL MCH 28.6 (27.0-32.0) pg MCHC 35.3 (32.0-37.0) g/dL Plt Count 239 (140-440) 10*3/uL MPV 8.4 L (9.5-12.2) fL Immature Gran % (Auto) 0.2 % Neutrophils % 83.8 % Lymphocytes % 11.4 % Monocytes % 4.0 % Eosinophils % 0.4 % Basophils % 0.2 % Immature Gran # 0.02 (0.00-0.04) 10*3/uL Neutrophils # 6.92 (1.80-7.70) 10*3/uL Lymphocytes # 0.94 (0.90-5.00) 10*3/uL Monocytes # 0.33 (0.20-1.00) 10*3/uL Eosinophils # 0.03 L (0.04-0.35) 10*3/uL Basophils # 0.02 (0.00-0.10) 10*3/uL Sodium 139 (137-145) mmol/L Potassium 3.8 (3.5-5.1) mmol/L Chloride 103 (98-107) mmol/L Carbon Dioxide 22 (22-30) mmol/L Anion Gap 14 mmol/L BUN 25 H (9-20) mg/dL Creatinine 0.88 (0.66-1.25) mg/dL Est GFR (CKD-EPI)AfAm >90 (>60 ml/min/1.73 sqM) Est GFR (CKD-EPI)NonAf >90 (>60 ml/min/1.73 sqM) Glucose 133 H (74-99) mg/dL Calcium 10.4 H (8.4-10.2) mg/dL Total Bilirubin 1.2 (0.2-1.3) mg/dL AST 31 (17-59) U/L ALT 25 (4-49) U/L Alkaline Phosphatase 72 (38-126) U/L Total Protein 8.2 (6.3-8.2) g/dL Albumin 4.9 (3.5-5.0) g/dL Lipase 196 (23-300) U/L - EKG Data -: EKG Interpreted by Me EKG Comments: EKG performed at 6: 35 sinus rhythm rate of 63 OH 167 QRS 94 QT/QTc 399/406 Disposition Clinical Impression: Right ureteral calculus Disposition: HOME SELF-CARE Condition: Stable Instructions (If sedation given, give patient instructions): Kidney Stones (ED) Additional Instructions: Please return to the Emergency Department if symptoms worsen or any other concerns. Prescriptions: Docusate [Colace] 100 mg PO DAILY PRN #14 capsule PRN Reason: Constipation Tamsulosin [Flomax] 0.4 mg PO DAILY #7 cap HYDROcodone/APAP 5-325MG [[place] 5] 1 each PO Q6HR PRN #12 tab PRN Reason: Pain Ketorolac [Toradol] 10 mg PO Q8HR #15 tab Ondansetron Odt [Zofran Odt] 4 mg PO Q8HR PRN #10 tab PRN Reason: Nausea Is patient prescribed a controlled substance at d/c from ED?: Yes When asked, does pt state using other controlled substances?: No If prescribed controlled substance>3 days was MAPS reviewed?: Prescribed <3 Days If opioid is for acute pain is fill amount 7 days or less?: Yes If Rx opioid, was Start Talking consent form obtained?: Yes Referrals: Adan Plaza MD [Primary Care Provider] - 1-2 days Ag Merino MD [STAFF PHYSICIAN] - 1-2 days Time of Disposition: 08:32
[2024-09-13] MEDS: SODIUM CHLORIDE 0.9% 1,000 ML IV ONE (06:48)
[2024-09-13] MEDS: HYDROmorphone 0.5 MG/0.5 ML SYRINGE IVP STA ×2 (06:48→08:47)
[2024-09-13 06:56] LABS: Basophils # (A) 0.02 10*3/uL (0.00-0.10); Basophils % (A) 0.2 %; Eosinophils # (A) 0.03 10*3/uL (0.04-0.35); Eosinophils % (A) 0.4 %; HCT 42.8 % (39.6-50.0); HGB 15.1 g/dL (13.0-17.0); Lymphocytes # (A) 0.94 10*3/uL (0.90-5.00); Lymphocytes % (A) 11.4 %; MCH 28.6 pg (27.0-32.0); MCHC 35.3 g/dL (32.0-37.0); MCV 81.1 fL (80.0-97.0); Mean Platelet Volume 8.4 fL (9.5-12.2); Monocytes # (A) 0.33 10*3/uL (0.20-1.00); Neutrophils # (A) 6.92 10*3/uL (1.80-7.70); Neutrophils % (A) 83.8 %; Platelet Count 239 10*3/uL (140-440); RBC 5.28 10*6/uL (4.40-5.60); RDW 13.3 % (11.5-14.5); WBC 8.26 10*3/uL (4.50-10.00)
[2024-09-13 07:15] LABS: ALT 25 U/L (4-49); AST 31 U/L (17-59); African American GFR (CKD) >90 (>60 ml/min/1.73 sqM); Albumin 4.9 g/dL (3.5-5.0); Alkaline Phosphatase 72 U/L (38-126); Anion Gap 14 mmol/L; Blood Urea Nitrogen 25 mg/dL (9-20); Calcium 10.4 mg/dL (8.4-10.2); Carbon Dioxide 22 mmol/L (22-30); Chloride 103 mmol/L (98-107); Glucose 133 mg/dL (74-99); Lipase 196 U/L (23-300); Non-African American GFR(CKD) >90 (>60 ml/min/1.73 sqM); Potassium 3.8 mmol/L (3.5-5.1); Sodium 139 mmol/L (137-145); Total Bilirubin 1.2 mg/dL (0.2-1.3); Total Protein 8.2 g/dL (6.3-8.2)
--- NOTE | 2024-09-13 07:39 | CT ---
EXAMINATION TYPE: CT abdomen pelvis w con CT DLP: 1473.3 mGycm, Automated exposure control for dose reduction was used. DATE OF EXAM: 09/13/2024 7:27 AM COMPARISON: Ultrasound liver 10/03/2016, CT renal stones 09/10/2018 CLINICAL INDICATION:Male, 48 years old with history of abdominal pain right; Right side abdominal raul n, Constipation TECHNIQUE: Standard CT of the abdomen and pelvis following the administration of 100 cc of Isovue 3 00 IV contrast material. Coronal and sagittal reformats were performed. FINDINGS: LOWER CHEST: Stable right middle lobe 4.4 mm groundglass pulmonary nodule dating back to 2018 and con sidered benign due to stability (series 204, image 7). No follow-up recommended. ABDOMEN LIVER: Punctate calcified granuloma along the inferior right hepatic lobe. Enlarged liver measuring 2 1.6 cm in CC dimension GALLBLADDER AND BILE DUCTS: Unremarkable. PANCREAS: Unremarkable. SPLEEN: Mildly enlarged measuring 14.4 cm in CC dimension. ADRENAL GLANDS: Unremarkable. KIDNEYS AND URETERS: No renal calculi bilaterally. No left hydronephrosis. Mild right hydroureteronep hrosis without obstructing 3 mm calculus at the ureterovesical junction. Slight delayed enhancement o f the right kidney compared to the left. Right perinephric fat stranding identified.Left renal inferi or pole cortical 1.2 cm cyst. No follow-up recommended. Contrast is demonstrated only within the left collecting system and proximal right ureter on the delayed phase. PELVIS BLADDER: Underdistended with a limited evaluation. REPRODUCTIVE: Coarse calcifications of the prostate gland are identified. ABDOMEN & PELVIS STOMACH AND BOWEL: Stomach and duodenum are unremarkable. Scattered distal colonic diverticulosis wit hout evidence for acute diverticulitis. No focal bowel wall thickening or surrounding inflammatory ch anges. The appendix is within normal limits. No evidence of bowel obstruction. PERITONEUM: No evidence of pneumoperitoneum or free fluid. VASCULATURE: Minimal atherosclerotic calcifications are present throughout the abdominal aorta and it s branches. No evidence of aortic aneurysm. MUSCULOSKELETAL: No acute osseous abnormalities. Multilevel degenerative disc disease and facet arthr opathy. LYMPH NODES: Couple of stable deepti hepatis lymph nodes with largest measuring 1.8 cm short axis dati ng back to 2018. Favored to be benign. SOFT TISSUE/ABDOMINAL WALL: Unremarkable IMPRESSION: 1. Mild right hydroureteronephrosis with an obstructing 3 mm calculus at the ureterovesical junction. 2. Colonic diverticulosis without evidence for acute diverticulitis. 3. Mild hepatosplenomegaly. [facility], , 09/13/2024 7:37 AM
[2024-09-13 08:53] VITALS: BP 119/75; PULSE 65; RESP 22
== END 2024-09-13 09:10 | disposition home or self-care (01) ==
LOC: EC 06:15
DX: N13.2 Hydronephrosis with renal and ureteral calculous obstruction (principal); Z91.018 Allergy to other foods
CPT/HCPCS: 36415; 93005; 80053; 83690; 85025; 74177; 99285; 96374; 96375; 96376; 96361; J2405; J1885; J1171; Q9967